=== PATIENT | male | born 1955 | race Caucasian/White ===

== ENCOUNTER → 2020-05-06 | Outpatient (CLI) | payer BC ==
--- NOTE | 2020-05-06 13:11 | EST ---
EXERCISE STRESS AGE: 64 SEX: M HT: 6'4" WT: 184 lbs. PROTOCOL: Jairo STAGE: 4 DURATION OF EXERCISE: 10:45 HEART RATE REST: 65 BLOOD PRESSURE REST: 101/75 MAXIMUM HEART RATE ACHIEVED: 135 MAXIMUM BLOOD PRESSURE: 187/80 85% MPHR: 133 100% MPHR: 156 METS: 12.1 INDICATIONS: Abnormal EKG. CLINICAL INFORMATION: Baseline EKG shows sinus rhythm with PVCs. The patient exercised on Jairo protocol for a total of 10.5 minutes achieving 12 METS, 86% of predicted maximal heart rate without chest pain. The patient continued to have PVCs during exercise that gradually resolved at peak and then resumed in recovery. At peak exercise, there was 1.[address]- segment depression noted. CONCLUSION: 1. Excellent exercise tolerance. 2. Inconclusive EKG part of the stress test due to baseline EKG abnormalities. YELITZA / SANDYN: [id number] /
== END | disposition home or self-care (01) ==
LOC: RADNMMAIN 08:29
PROVIDERS: ATTEND Internal Medicine
DX: R00.8 Other abnormalities of heart beat (principal)
CPT/HCPCS: 93017

== ENCOUNTER → 2022-07-26 | Outpatient (CLI) | payer BC, MEDICARE ==
--- NOTE | 2022-07-26 14:18 | US ---
EXAMINATION TYPE: US kidneys/renal and bladder DATE OF EXAM: 07/26/2022 COMPARISON: NONE CLINICAL HISTORY: R82.89 ABN CELL COUNT OF URINE. Abnormal labs. EXAM MEASUREMENTS: Right Kidney: 10.2 x 5.4 x 5.0 cm Left Kidney: 9.5 x 5.5 x 4.6 cm Right Kidney: No hydronephrosis or masses seen Left Kidney: No hydronephrosis or masses seen Bladder: wnl Bilateral Jets seen: Yes There is no evidence for hydronephrosis at this point in time. No nephrolithiasis is seen. No antonino s are identified. The urinary bladder is adequately distended. Bilateral ureteral jets are seen. IMPRESSION: Unremarkable study.
== END | disposition home or self-care (01) ==
LOC: RADUSWWP 13:29
PROVIDERS: ATTEND Internal Medicine
DX: R82.89 Other abnormal findings on cytological and histological examination of urine (principal)
CPT/HCPCS: 76770